=== PATIENT | male | born 1955 | race Caucasian/White ===

== ENCOUNTER → 2017-03-10 | Outpatient (CLI) | payer MEDICAID ==
[2017-03-10 10:18] LABS: ALT 28 U/L (21-72); AST 30 U/L (17-59); Alkaline Phosphatase 56 U/L (38-126); Anion Gap 9 mmol/L; Blood Urea Nitrogen 21 mg/dL (9-20); Calcium 9.2 mg/dL (8.4-10.2); Carbon Dioxide 29 mmol/L (22-30); Chloride 105 mmol/L (98-107); Cholesterol 220 mg/dL (<200); Glucose 97 mg/dL (74-99); HDL Cholesterol 42 mg/dL (40-60); Non-African American GFR(MDRD) >60 (>60 ml/min/1.73 sqM); Potassium 4.4 mmol/L (3.5-5.1); Sodium 143 mmol/L (137-145); Total Bilirubin 0.9 mg/dL (0.2-1.3); Total Protein 7.5 g/dL (6.3-8.2); Triglycerides 115 mg/dL (<150)
[2017-03-10 10:28] LABS: CH 31.5; CHCM 33.5; HCT 43.9 % (39.0-53.0); HDW 2.55; HGB 15.1 gm/dL (13.0-17.5); MCH 32.5 pg (25.0-35.0); MCHC 34.5 g/dL (31.0-37.0); MCV 94.3 fL (80.0-100.0); Mean Platelet Volume 6.9; RBC 4.65 m/uL (4.30-5.90)
== END | disposition home or self-care (01) ==
LOC: LABWHC1 09:43
PROVIDERS: ATTEND Internal Medicine
DX: I10 Essential (primary) hypertension (principal)
CPT/HCPCS: 36415; 80053; 80061; 84443; 85027

== ENCOUNTER → 2018-03-14 | Outpatient (CLI) | payer MEDICAID ==
[2018-03-14 09:19] LABS: HCT 44.6 % (39.0-53.0); HGB 14.8 gm/dL (13.0-17.5); MCH 30.5 pg (25.0-35.0); MCHC 33.1 g/dL (31.0-37.0); MCV 92.1 fL (80.0-100.0); Mean Platelet Volume 6.8; Platelet Count 218 k/uL (150-450); RBC 4.84 m/uL (4.30-5.90); RDW 13.3 % (11.5-15.5); WBC 5.8 k/uL (3.8-10.6)
[2018-03-14 09:28] LABS: Calcium 9.2 mg/dL (8.4-10.2); Potassium 4.8 mmol/L (3.5-5.1); Total Bilirubin 0.7 mg/dL (0.2-1.3); Total Protein 6.9 g/dL (6.3-8.2)
== END | disposition home or self-care (01) ==
LOC: LABWHC1 08:35
PROVIDERS: ATTEND Internal Medicine
DX: I10 Essential (primary) hypertension (principal)
CPT/HCPCS: 36415; 80053; 80061; 85027

== ENCOUNTER → 2018-04-27 | Outpatient (CLI) | payer MEDICAID ==
--- NOTE | 2018-04-28 01:47 | MR ---
EXAMINATION TYPE: MR shoulder RT wo con DATE OF EXAM: 04/27/2018 COMPARISON: None HISTORY: Pain in right shoulder TECHNIQUE: Multiplanar, multisequence imaging of the right shoulder is performed without contrast. FINDINGS: There is retraction of the supraspinatus tendon from the greater tuberosity of the humerus. There is intact biceps tendon and subscapularis tendon. There is shoulder joint effusion with fluid at the gre ater tuberosity and around the biceps tendon. The glenoid hellen appear intact. There is minor spurrin g at the AC joint. There is no significant impingement on the supraspinatus tendon. IMPRESSION: Large rotator cuff tear with retraction of the supraspinatus tendon. Shoulder joint effusion.
== END | disposition home or self-care (01) ==
LOC: RADMRIMAIN 07:11
PROVIDERS: ATTEND Orthopaedic Surgery
DX: M75.101 Unspecified rotator cuff tear or rupture of right shoulder, not specified as traumatic (principal); M25.411 Effusion, right shoulder; M65.811 Other synovitis and tenosynovitis, right shoulder; M75.41 Impingement syndrome of right shoulder

== ENCOUNTER 2018-06-16 06:17 | Day surgery (SDC) | payer MEDICAID ==
[2018-06-13 11:19] VITALS: BMI 29.7
[~2018-06-16 06:17] MED LIST: DEXAMETHASONE SOD PHOSPHATE 10 MG/ML 1 ML VIAL IV ONE; LACTATED RINGERS 1,000 ML IV SCH; MIDAZOLAM 2 MG/2 ML VIAL IV PRN; ONDANSETRON 4 MG/2 ML VIAL IVP ONE; SCOPOLAMINE 1.5MG/72HR PATCH TRANSDERM ONE; ceFAZolin IN SWFI 2 GM/20 ML SYRINGE IVP ONE; fentaNYL (PF) 50 MCG/ML 2 ML AMP IV PRN
[2018-06-16] MEDS ORDERED: MIDAZOLAM 2 MG/2 ML VIAL IV ONE (07:19)
[2018-06-16] MEDS ORDERED: LIDOCAINE 1% 20 ML VIAL (10MG/ML) FOR IV START INTRADERMA ONE (07:26)
[2018-06-16] MEDS ORDERED: LIDOCAINE 2%-EPI 1:100,000 20 ML VIAL ONE (07:46)
[2018-06-16] MEDS ORDERED: ePHEDrine SULFATE/0.9% NACL/PF 50 MG/5 ML SYRINGE IV ONE (07:46)
[2018-06-16] MEDS ORDERED: PROPOFOL 10 MG/ML 20 ML VIAL IV ONE (07:46)
[2018-06-16] MEDS ORDERED: MIDAZOLAM 2 MG/2 ML VIAL ONE (07:46)
[2018-06-16] MEDS ORDERED: LIDOCAINE 1% INJ 10MG/ML (20 ML MDV) ONE (07:46)
[2018-06-16] MEDS ORDERED: ROPIVACAINE 5 MG/ML 30 ML VIAL ONE (07:46)
[2018-06-16] MEDS ORDERED: ceFAZolin 1,000 MG in SODIUM CHLORIDE 0.9% 1,000 ML IRRIGATION ONE (08:07)
[2018-06-16] MEDS ORDERED: LACTATED RINGERS 1,000 ML IV ONE (09:06)
[2018-06-16 09:34] VITALS: TEMP 97.1
[2018-06-16 10:03] VITALS: RESP 18
--- NOTE | 2018-06-16 10:11 | P.ONQ ---
Anesthesiology Proc Note - PNB - Peripheral Nerve Block Performed Right Interscalene Indication: Acute Post-Operative Pain, Requested by physician (Dr Mason) Sedation Type: Sedate with meaningful contact maintained Preparation: Sterile Prep Position: Supine Catheter: None Needle Types: Other (see comment) (Orlin) Needle Size: 50mm (2") Needle Gauge: 21 Technique: Ultrasound (0.5% Ropivacaine 14cc, 2% lidocaine with 1:200,000 epi 14cc) Blood Aspirated: No Pain Paresthesia on Injection Noted: No Resistance on Injection: Normal Events: Uneventful and Well Tolerated
[2018-06-16 11:12] VITALS: BP 139/79; PULSE 69
--- NOTE | 2018-06-23 08:25 | OP ---
OPERATIVE REPORT DATE OF PROCEDURE: 06/16/2018. SURGEON: Arsh Mason DO. PROOF SORTER: MANJIT Nichols PREOPERATIVE DIAGNOSIS: Complete rupture of the right rotator cuff. POSTOPERATIVE DIAGNOSIS: Complete rupture of the right rotator cuff. PROCEDURE PERFORMED: Resection of the distal right clavicle, decompression acromioplasty, and right rotator cuff repair utilizing 2 Arthrex bioabsorbable screw anchors. DESCRIPTION OF PROCEDURE: Patient was taken to the operative suite and placed in supine position. Regional block anesthesia had been performed by the department of anesthesia. The patient was placed on the surgical table and appropriately padded and secured in the beach chair position. A Betadine prep was carried out over the right shoulder and arm in the usual fashion. Sterile drapes were applied in the usual manner. Anterolateral approach incision was developed over the anterior lateral border of the acromion. Sharp dissection through the subcutaneous tissue was performed. The acromioclavicular ligament was dissected and the distal 1 cm of the clavicle was excised. The anterior deltoid was released along the anterior lateral border. Decompression acromioplasty was performed. The acromion undersurface was smoothed with a bone saw and bone rasp. Direct visualization with complete tear of the rotator cuff was noted. With the arm in abduction, the rotator cuff was secured in position with Arthrex 5.5 bioabsorbable anchor. The area was irrigated copiously. The deltoid was approximated back into the acromion with #1 Ethibond suture. The fascia was approximated with #1 Vicryl suture in running fashion. The subcutaneous tissue was approximated with 2-0 Vicryl suture. The skin was approximated with subcuticular 3-0 Vicryl closure. The incision was sealed with Dermabond. A sterile dressing was applied. The patient was placed in abductor pillow and transferred to the recovery room in satisfactory postop condition. GROSS PATHOLOGY: This was a complete rupture of the right rotator cuff, approximately 6 to 8 months old. MMODL / IJN: [id number] / [email or web address]
== END 2018-06-16 11:30 | disposition home or self-care (01) ==
LOC: OR 06:17 → 5ONC 09:19 → OR 11:30
PROVIDERS: ATTEND Orthopaedic Surgery
DX: M75.121 Complete rotator cuff tear or rupture of right shoulder, not specified as traumatic (principal); I10 Essential (primary) hypertension; M75.41 Impingement syndrome of right shoulder; M65.811 Other synovitis and tenosynovitis, right shoulder; E78.00 Pure hypercholesterolemia, unspecified; E66.9 Obesity, unspecified; H40.9 Unspecified glaucoma; Z79.82 Long term (current) use of aspirin; Z79.899 Other long term (current) drug therapy; Z87.01 Personal history of pneumonia (recurrent); Z68.31 Body mass index [BMI] 31.0-31.9, adult
CPT/HCPCS: 23412; 23120; 23130; 64415; C1713; J2250; J1100; J2405; J0690 ×2; J2001; J2795; J2704

== ENCOUNTER 2018-09-25 12:34 | Day surgery (SDC) | payer MEDICAID ==
[2018-09-21 10:54] VITALS: BMI 29.7
[~2018-09-25 12:34] MED LIST changes: +HYDROmorphone 0.5 MG/0.5 ML SYRINGE IVP PRN; +LIDOCAINE 1% 20 ML VIAL (10MG/ML) FOR IV START INTRADERMA PRN; +Pre Op ABX Message 1 EACH MISC MISCELLANE ONE; -ceFAZolin IN SWFI 2 GM/20 ML SYRINGE IVP ONE; -fentaNYL (PF) 50 MCG/ML 2 ML AMP IV PRN
[2018-09-25] MEDS ORDERED: ROPIVACAINE 5 MG/ML 30 ML VIAL MISCELLANE ONE (14:16)
[2018-09-25] MEDS ORDERED: LIDOCAINE 2% INJ 20 MG/ML SQ ONE (14:16)
[2018-09-25 15:00] VITALS: PULSE 69; RESP 18
[2018-09-25 15:19] VITALS: BP 126/78; TEMP 70
--- NOTE | 2018-09-25 16:54 | OP ---
OPERATIVE REPORT DATE OF SURGERY: 09/25/2018. PREOPERATIVE DIAGNOSIS: Ganglion cyst and osteophytic spur DIP joint, left middle finger with nail deformity. FINAL DIAGNOSES: Ganglion cyst and osteophytic spur DIP joint, left middle finger with nail deformity. PROCEDURE PERFORMED: Arthrotomy DIP joint with debridement and excision of ganglion cyst, left middle finger. DESCRIPTION OF PROCEDURE: 63-year-old man was taken operative suite and a straight local anesthetic was injected by myself with combination of Xylocaine and Marcaine both without epinephrine in a digital block manner. His hand was then prepped and draped in the usual manner. Hemostasis was acquired with a [place] drain at the base of the left middle finger. A T-shaped incision was created over the radial corner of the DIP joint. Skin flaps were dissected. An arthrotomy was performed with debridement of the joint using a grand baby rongeur. The extensor tendon was intact at the completion of the procedure. The debridement contents were sent to the lab for analysis. A tunnel was created from the joint to the cyst which exited over the radial aspect of the proximal nail fold. This was incised and drained and evacuated and debrided. The tourniquet was released and hemostasis was satisfactory. The wound was irrigated. The wound was closed with 5-0 nylon suture. Soft bulky dressing was applied. The patient taken to recovery in satisfactory condition. MMODL / IJN: [id number] /
== END 2018-09-25 15:26 | disposition home or self-care (01) ==
LOC: OR 12:34
PROVIDERS: ATTEND Orthopaedic Surgery Hand Surgery
DX: M67.442 Ganglion, left hand (principal); M19.042 Primary osteoarthritis, left hand; I10 Essential (primary) hypertension; H40.9 Unspecified glaucoma; Z79.899 Other long term (current) drug therapy; Z79.82 Long term (current) use of aspirin; Z88.6 Allergy status to analgesic agent
CPT/HCPCS: 26160; 88304; J2001; J1100; J2405; J2795

== ENCOUNTER → 2018-09-28 | Outpatient (CLI) | payer MEDICAID | END | disposition home or self-care (01) | LOC: LABWHC1 10:54 | PROVIDERS: ATTEND Orthopaedic Surgery Hand Surgery | DX: M19.042 Primary osteoarthritis, left hand (principal); M79.642 Pain in left hand; R22.9 Localized swelling, mass and lump, unspecified; Z98.890 Other specified postprocedural states | CPT/HCPCS: 87070; 87077; 87186; 87205 ==

== ENCOUNTER 2018-10-16 08:55 | Emergency (ER) | payer MEDICAID ==
[2018-10-16 09:00] VITALS: TEMP 97.5
[2018-10-16] MEDS ORDERED: SODIUM CHLORIDE 0.9% 1,000 ML IV STA (09:13)
--- NOTE | 2018-10-16 09:18 | ED ---
General Adult HPI - General Chief complaint: Skin/Abscess/Foreign Body Stated complaint: Finger infection Time Seen by Provider: 10/16/18 09:04 Source: patient, RN notes reviewed Mode of arrival: ambulatory Limitations: no limitations - History of Present Illness Initial comments: Patient 63-year-old male presenting to the emergency room today with a chief complaint of infection to the left middle finger. Patient does admit that on September 25 he had a surgery at Dr. Stewart for ganglionic cyst removal. States that 3 days later became infected. He states he's been on antibiotics of Bactrim since. He states he's taking Bactrim 3 times daily. He states he has been following up with orthopedics. Most recently saw 4 days ago in the office. They did discuss about coming in the following day to do a drainage. However, patient states that his insurance is through [facility] and did not want to have to pay for surgery at the office. States he is scheduled to see him this coming week. States he woke up this morning noticed that there was a blister area to the volar aspect that is new. States the swelling has stayed about the same. States pain is roughly the same as it comes and goes. He denies any other complaints or symptoms. Patient denies any recent fever, chills, shortness of breath, chest pain, back pain, abdominal pain, nausea or vomiting, numbness or tingling, headaches or visual changes, or any other complaints. - Related Data Home Medications Medication Instructions Recorded Confirmed Latanoprost Ophth [Xalatan 0.005%] 1 drops LEFT EYE HS 08/09/17 10/16/18 Losartan Potassium [Cozaar] 50 mg PO W/SUPPER 08/09/17 10/16/18 Timolol 0.5% Ophth Soln [Timoptic 1 drop BOTH EYES HS 06/13/18 10/16/18 0.5% Ophth Soln] Sulfamethoxazole/Trimethoprim 1 tab PO BID 10/16/18 10/16/18 [Bactrim DS 800-160 mg] Previous Rx's Medication Instructions Recorded Cephalexin [Keflex] 500 mg PO Q12HR 10 Days cap 10/16/18 Allergies Allergy/AdvReac Type Severity Reaction Status Date / Time spider venom Allergy Rash/Hives Verified 10/16/18 09:48 tramadol Allergy Nausea & Verified 10/16/18 09:48 Vomiting Review of Systems ROS Statement: Those systems with pertinent positive or pertinent negative responses have been documented in the HPI. ROS Other: All systems not noted in ROS Statement are negative. Past Medical History Past Medical History: Eye Disorder, Hypertension Additional Past Medical History / Comment(s): open and closed angle glaucoma. heart murmur, History of Any Multi-Drug Resistant Organisms: None Reported Past Surgical History: Hernia Repair, Orthopedic Surgery Additional Past Surgical History / Comment(s): lt elbow reattached tendon, laser surgery sherry eyes, rt eye surgery(tube)-for bleb, rt eye cataract, rt rotator cuff repair Past Anesthesia/Blood Transfusion Reactions: Postoperative Nausea & Vomiting ( PONV) Additional Past Anesthesia/Blood Transfusion Reaction / Comment(s): "took long time to come out" with elbow surgery Past Psychological History: No Psychological Hx Reported Smoking Status: Never smoker Past Alcohol Use History: None Reported Past Drug Use History: None Reported - Past Family History Brother(s) Family Medical History: Cancer Additional Family Medical History / Comment(s): x2 brothers prostate cancer General Exam - General Exam Comments Initial Comments: General: The patient is awake and alert, in no distress, and does not appear acutely ill. Eye: There is normal conjunctiva bilaterally. No signs of icterus. Ears, nose, mouth and throat: There are moist mucous membranes and no oral lesions. Neck: The neck is supple Musculoskeletal: Patient does have a moderately swollen third digit of the left hand. There is ulcerated area at the DIP aspect posteriorly where cyst was removed. There is mild redness. There is no lymphangitic streaking. Strength 5/5. Sensation intact. Radial pulses equal bilaterally 2+. Neurological: A&O x 3. CN II-XII intact, There are no obvious motor or sensory deficits. Coordination appears grossly intact. Speech is normal. Skin: Skin is warm and dry and no rashes or lesions are noted. Psychiatric: Cooperative, appropriate mood & affect, normal judgment. Limitations: no limitations Course Vital Signs 10/16/18 08:58 Temperature 97.5 F L Pulse Rate 66 Respiratory 20 Rate Blood Pressure 135/75 O2 Sat by Pulse 98 Oximetry Medical Decision Making - Medical Decision Making Patient's labs been reviewed no elevated white count. No fever here in the emergency room. Patient states that the swelling redness has stayed the same over the last 3 weeks. He has been following closely with orthopedics. Patient x-ray show no evidence of osteomyelitis. Results were discussed with patient. Options of admission were also discussed. He states he would like to be discharged if possible. We will add antibiotic Keflex to the regimen of Bactrim that he is currently on. Patient is advised to follow-up with orthopedics the next 2 days. Advised to return here to emergency room if symptoms increase or worsen. He states understanding and is in agreement. - Lab Data Result diagrams: 10/16/18 09:27 10/16/18 09:27 Lab Results 10/16/18 10/16/18 Range/Units 09:27 09:27 WBC 5.7 (3.8-10.6) k/uL RBC 4.85 (4.30-5.90) m/uL Hgb 14.5 (13.0-17.5) gm/dL Hct 44.3 (39.0-53.0) % MCV 91.3 (80.0-100.0) fL MCH 30.0 (25.0-35.0) pg MCHC 32.8 (31.0-37.0) g/dL RDW 13.1 (11.5-15.5) % Plt Count 320 (150-450) k/uL Neutrophils % 56 % Lymphocytes % 30 % Monocytes % 8 % Eosinophils % 4 % Basophils % 1 % Neutrophils # 3.2 (1.3-7.7) k/uL Lymphocytes # 1.7 (1.0-4.8) k/uL Monocytes # 0.4 (0-1.0) k/uL Eosinophils # 0.2 (0-0.7) k/uL Basophils # 0.0 (0-0.2) k/uL Sodium 138 (137-145) mmol/L Potassium 4.6 (3.5-5.1) mmol/L Chloride 104 (98-107) mmol/L Carbon Dioxide 24 (22-30) mmol/L Anion Gap 10 mmol/L BUN 21 H (9-20) mg/dL Creatinine 1.30 H (0.66-1.25) mg/dL Est GFR (CKD-EPI)AfAm 67 (>60 ml/min/1.73 sqM) Est GFR (CKD-EPI)NonAf 58 (>60 ml/min/1.73 sqM) Glucose 96 (74-99) mg/dL Calcium 9.4 (8.4-10.2) mg/dL Total Bilirubin 0.4 (0.2-1.3) mg/dL AST 28 (17-59) U/L ALT 30 (21-72) U/L Alkaline Phosphatase 58 (38-126) U/L Total Protein 7.4 (6.3-8.2) g/dL Albumin 3.9 (3.5-5.0) g/dL Disposition Clinical Impression: Finger infection Disposition: HOME SELF-CARE Condition: Good Instructions: Abscess (ED) Additional Instructions: Please use medication as discussed. Please follow-up with orthopedics in the next 2 days. Please return to emergency room if the symptoms increase or worsen or for any other concerns. Prescriptions: Cephalexin [Keflex] 500 mg PO Q12HR 10 Days cap Is patient prescribed a controlled substance at d/c from ED?: No Referrals: Alvaro Hubbard MD [Primary Care Provider] - 1-2 days Time of Disposition: 10:54
[2018-10-16 09:42] LABS: Basophils % (A) 1 %; Eosinophils # (A) 0.2 k/uL (0-0.7); Eosinophils % (A) 4 %; HCT 44.3 % (39.0-53.0); HGB 14.5 gm/dL (13.0-17.5); Lymphocytes # (A) 1.7 k/uL (1.0-4.8); Lymphocytes % (A) 30 %; MCHC 32.8 g/dL (31.0-37.0); MCV 91.3 fL (80.0-100.0); Mean Platelet Volume 6.2; Monocytes # (A) 0.4 k/uL (0-1.0); Monocytes % (A) 8 %; Neutrophils # (A) 3.2 k/uL (1.3-7.7); Neutrophils % (A) 56 %; Platelet Count 320 k/uL (150-450); RBC 4.85 m/uL (4.30-5.90); RDW 13.1 % (11.5-15.5); WBC 5.7 k/uL (3.8-10.6)
[2018-10-16 09:50] LABS: Albumin 3.9 g/dL (3.5-5.0); Calcium 9.4 mg/dL (8.4-10.2); Potassium 4.6 mmol/L (3.5-5.1); Total Bilirubin 0.4 mg/dL (0.2-1.3); Total Protein 7.4 g/dL (6.3-8.2)
--- NOTE | 2018-10-16 10:03 | XR ---
EXAMINATION TYPE: XR hand complete LT DATE OF EXAM: 10/16/2018 CLINICAL HISTORY: Surgery of the left distal third digit on 09/25/2018 with subsequent swelling and c oncern for infection. TECHNIQUE: Frontal, lateral and oblique images of the left hand are obtained. COMPARISON: None. FINDINGS: There is no acute fracture/dislocation evident in the left hand. There is focal subcutaneo us soft tissue swelling of the third digit at the distal interphalangeal joint with more generalized soft tissue swelling of the third digit to a lesser degree. Punctate foreign body is seen of the radi al and volar aspect of the third digit near the distal aspect of the proximal phalanx. Degenerative c hanges are most pronounced at the distal interphalangeal joint of the third digit with flexion deform ity but overall mild in degree and also seen at the remaining distal interphalangeal joints and first carpometacarpal joint. No suspicious osseous erosion is seen to suggest osteomyelitis. IMPRESSION: Soft tissues swelling of the third digit most pronounced at the distal interphalangeal joint with fle xion deformity at the distal interphalangeal joint and degenerative change. No radiographic sequela o f chronic osteomyelitis. Punctate radiopaque foreign body is seen at the radial and volar aspect of t he proximal third phalanx.
[2018-10-16 11:03] VITALS: BP 127/79; PULSE 55; RESP 16
== END 2018-10-16 11:16 | disposition home or self-care (01) ==
LOC: EC 08:55
DX: L98.499 Non-pressure chronic ulcer of skin of other sites with unspecified severity (principal); I10 Essential (primary) hypertension; H40.20X0 Unspecified primary angle-closure glaucoma, stage unspecified; H40.10X0 Unspecified open-angle glaucoma, stage unspecified; Z88.5 Allergy status to narcotic agent; Z91.048 Other nonmedicinal substance allergy status; Z79.899 Other long term (current) drug therapy
CPT/HCPCS: 36415; 80053; 83605; 85025; 87040; 96360; 99284

== ENCOUNTER → 2018-10-25 | Day surgery (SDC) | payer MEDICAID ==
[2018-10-24 10:46] VITALS: BMI 29.7
[~2018-10-25] MED LIST changes: -DEXAMETHASONE SOD PHOSPHATE 10 MG/ML 1 ML VIAL IV ONE; -HYDROmorphone 0.5 MG/0.5 ML SYRINGE IVP PRN; -LACTATED RINGERS 1,000 ML IV SCH; -LIDOCAINE 1% 20 ML VIAL (10MG/ML) FOR IV START INTRADERMA PRN; +LIDOCAINE 1% INJ 10MG/ML (20 ML MDV) ONE; +LIDOCAINE 1% INJ 10MG/ML (20 ML MDV) SQ ONE; -MIDAZOLAM 2 MG/2 ML VIAL IV PRN; -ONDANSETRON 4 MG/2 ML VIAL IVP ONE; -Pre Op ABX Message 1 EACH MISC MISCELLANE ONE; -SCOPOLAMINE 1.5MG/72HR PATCH TRANSDERM ONE
[2018-10-25 11:20] VITALS: TEMP 98
[2018-10-25 12:04] VITALS: BP 120/70; PULSE 56; RESP 16
--- NOTE | 2018-10-25 12:15 | IR ---
PICC LINE PLACEMENT: HISTORY: Infection requiring long-term antibiotic therapy PROCEDURE: Ultrasound and fluoroscopic guidance of PICC line placement. COMPLICATIONS: None ANESTHESIA: 1. 1% Lidocaine locally. FINDINGS/TECHNIQUE: The procedure was explained to the patient. The risks, complications, benefits and alternatives were discussed and any questions were answered. Informed consent was obtained. The patient was placed supine on the fluoroscopic table and prepped and draped in the usual sterile [facility] ion. Utilizing a 21 gauge needle and sonographic and fluoroscopic guidance, access in left basilic vein was achieved and there is placement of a 0.018 guidewire. The vein is patent. A 4-F sheath was placed over the guidewire. The guidewire and dilator were removed and a 4-F. PICC line was placed t hrough the sheath with the tip at the level of the SVC. The sheath was removed, the catheter was flu shed and sutured into position. The patient was stable throughout the procedure and remained stable upon discharge from the Department of Radiology. The vein puncture was patent under ultrasound. A manrique scale image was obtained to document patency of the vein punctured. All elements of the maximal barrier technique were utilized. FLUOROSCOPY TIME: 0.1 minute and one image submitted IMPRESSION: Successful PICC line placement under ultrasound and fluoroscopic guidance.
[2018-10-25 12:33] LABS: Potassium 4.4 mmol/L (3.5-5.1)
[2018-10-25 12:36] LABS: HCT 42.2 % (39.0-53.0); HGB 14.2 gm/dL (13.0-17.5); MCH 30.7 pg (25.0-35.0); MCHC 33.6 g/dL (31.0-37.0); MCV 91.5 fL (80.0-100.0); Platelet Count 177 k/uL (150-450); RBC 4.62 m/uL (4.30-5.90); RDW 13.3 % (11.5-15.5)
[2018-10-25 12:52] LABS: Band Neutrophils % 1 %; Eosinophils # (M) 0.25 k/uL (0-0.7); Lymphocytes # (M) 1.85 k/uL (1.0-4.8); Monocytes # (M) 0.75 k/uL (0-1.0); Neutrophils % (M) 42 %; Nucleated Red Blood Cells 0 /100 WBC (0-0); Poikilocytosis (M) Present; Total Cells Counted 100
== END ==
LOC: CATHCVL 10:54
PROVIDERS: ATTEND Radiology Diagnostic Radiology
DX: M65.842 Other synovitis and tenosynovitis, left hand (principal); E66.9 Obesity, unspecified; Z68.29 Body mass index [BMI] 29.0-29.9, adult; E78.00 Pure hypercholesterolemia, unspecified; I10 Essential (primary) hypertension; Z79.899 Other long term (current) drug therapy; Z88.5 Allergy status to narcotic agent
CPT/HCPCS: 36573; 80051; 82565; 84520; 85025; C1751; C1769; J2001

== ENCOUNTER → 2018-11-27 | Outpatient (CLI) | payer MEDICAID ==
--- NOTE | 2018-11-27 22:55 | MR ---
EXAMINATION TYPE: MR hand LT wo/w con DATE OF EXAM: 11/27/2018 COMPARISON: Left hand x-ray October 16, 2018. HISTORY: Abrasion of left middle finger w/infection after surgery to remove a cyst on September 27. Hi story of working around metal shavings. CONTRAST: Standard multiplanar, multisequence MRI departmental protocol utilizing 10 mL intravenous Gadavist ga dolinium contrast. FINDINGS: Exam noted suboptimal as there is an homogeneity of the fat saturation pulse. On the radial aspect at level of the distal diaphysis of the third proximal phalanx there is suscepti bility artifact from known metallic soft tissue foreign body seen on x-ray. There is moderate asymmet preethi enlargement of the left third digit with soft tissue thickening noted. There is additional suscep tibility artifact less prominent but along palmar surface at level of the distal third middle phalanx seen best sagittal image 12. No corresponding metallic foreign body is clearly seen radiograph. Enha ncing soft tissue is felt present at this level consistent with acute cellulitis.. Flexor tendon is i ntact on the sagittal images. No definitive osseous edema or enhancing osseous enhancement is present . Remainder of visualized hand shows mild to moderate narrowing and mild spurring throughout the remain moose of the phalanges. No suspicious edema osseous edema or enhancement is seen. IMPRESSION: As above, moderate enlargement of the third finger most prominent along the plantar surface with enha ncing subcutaneous fat suspicious for acute cellulitis. Second soft tissue foreign body suspected wit h susceptibility artifact.
== END ==
LOC: RADMRIMAIN 07:08
PROVIDERS: ATTEND Internal Medicine Infectious Disease
DX: M79.89 Other specified soft tissue disorders (principal)
CPT/HCPCS: 73220; A9585

== ENCOUNTER → 2018-11-30 | Day surgery (SDC) | payer MEDICAID ==
[2018-11-29 14:26] VITALS: BMI 29.7
[~2018-11-30] MED LIST changes: +DEXAMETHASONE SOD PHOSPHATE 10 MG/ML 1 ML VIAL IV ONE; +LACTATED RINGERS 1,000 ML IV SCH; +LIDOCAINE 1% 20 ML VIAL (10MG/ML) FOR IV START INTRADERMA PRN; -LIDOCAINE 1% INJ 10MG/ML (20 ML MDV) ONE; -LIDOCAINE 1% INJ 10MG/ML (20 ML MDV) SQ ONE; +LIDOCAINE 2% INJ 20 MG/ML SQ ONE; +MIDAZOLAM (PF) 2 MG/2 ML VIAL IV PRN; +ONDANSETRON 4 MG/2 ML VIAL IVP ONE; +Pre Op ABX Message 1 EACH MISC MISCELLANE ONE; +ROPIVACAINE 5 MG/ML 30 ML VIAL MISCELLANE ONE; +fentaNYL (PF) 50 MCG/ML 2 ML AMP IV PRN
[2018-11-30 13:42] VITALS: RESP 16; TEMP 98.7
[2018-11-30 16:07] VITALS: BP 125/78; PULSE 57
--- NOTE | 2018-12-01 18:57 | OP ---
OPERATIVE REPORT DATE OF SURGERY: 11/30/2018. PREOPERATIVE DIAGNOSIS: Infected left middle finger. FINAL DIAGNOSIS: Infected left middle finger. PROCEDURE PERFORMED: 1. Arthrotomy DIP joint with culture and deep lavage. 2. Flexor tendon sheath exploration with culture and lavage. INDICATIONS: 63-year-old man has had a persistent infection of his left middle finger DIP joint, treated with IV antibiotics. It has been recovering slowly and has recently developed a resurgence of redness and swelling. Physical exam demonstrated a swelling in the joint and also beginning in the flexor tendon sheath. The distal aspect on the volar side. Therefore, both dorsal and volar approaches are being performed. GROSS PATHOLOGY: Intraoperatively there were minimal findings of infection. Examination today actually in the preop area demonstrates significantly less redness than there was yesterday when seen in the office and the procedure was scheduled. Intraoperatively, there was minimal signs of pus near the joint or the flexor tendon sheath. There was synovial fluid in the flexor tendon sheath. Both were cultured separately and exposed with separate instruments. PROCEDURE: 63-year-old man was taken to the operative suite where a straight local anesthetic was administered. No other sedation was given at his request. His hand was prepped and draped in usual manner. A proximal tourniquet on the finger with a Shannan drain was used for hemostasis. A T-shaped incision was made over the previous infection site in the DIP joint. Dissection was taken down to the corner of the joint. A partial capsulectomy was performed for exposure and a culture was taken. As stated above, there really were not any visual signs of infection per se. Attention was then turned to the flexor tendon sheath on the volar side. Longitudinal V-shaped incision was made over the DIP joint. Blunt dissection was taken down to the flexor tendon sheath, avoiding the neurovascular bundles on either side. Procedure was done under 4.5 loupe magnification. When the flexor tendon sheath was opened, there was synovial fluid, but no signs of pus. A separate culture was taken. Note that separate instruments were used for both exposures to avoid any cross contamination. 3000 mL of and of fluid were then pulse lavaged in both wounds. The wounds were then packed with sterile gauze and a bulky soft dressing was applied. No wound closure was performed for drainage purposes. The patient was then taken to the recovery room in satisfactory condition. MMODL / IJN: [id number] /
== END ==
LOC: OR 13:08
PROVIDERS: ATTEND Orthopaedic Surgery Hand Surgery
DX: L08.9 Local infection of the skin and subcutaneous tissue, unspecified (principal); I10 Essential (primary) hypertension; H40.9 Unspecified glaucoma; Z79.2 Long term (current) use of antibiotics; Z79.899 Other long term (current) drug therapy; Z88.5 Allergy status to narcotic agent
CPT/HCPCS: 87070; 87205; 87075; 26080; J2001; J1642; J2795

== ENCOUNTER → 2019-07-06 | Outpatient (CLI) | payer MEDICAID ==
[2019-07-06 08:45] LABS: MCV 91.2 fL (80.0-100.0); Mean Platelet Volume 6.8; Platelet Count 228 k/uL (150-450); RBC 4.83 m/uL (4.30-5.90); RDW 13.9 % (11.5-15.5); WBC 6.9 k/uL (3.8-10.6)
[2019-07-06 17:07] LABS: African American GFR (CKD) 73.6 (60.0-200.0); Albumin 4.2 g/dL (3.80-4.90); Albumin/Globulin Ratio 1.83 (1.60-3.17); Anion Gap 8.7 mmol/L (4.00-12.00); BUN/Creat Ratio 19.17 Ratio (12.00-20.00); Calcium 9.4 mg/dL (8.7-10.3); Carbon Dioxide 25.3 mmol/L (21.6-31.8); Chol/HDL Ratio 5.67; Globulin 2.3 g/dL (1.6-3.3); LDL Cholesterol,Calculated 166.8 mg/dL (0.0-131.0); Potassium 4.3 mmol/L (3.5-5.5); Total Bilirubin 0.7 mg/dL (0.2-1.2); Total Protein 6.5 g/dL (6.2-8.2); VLDL Calculation 34.2 mg/dL (5.00-40.00)
== END | disposition home or self-care (01) ==
LOC: LABWHC1 07:59
PROVIDERS: ATTEND Internal Medicine
DX: I10 Essential (primary) hypertension (principal); E78.00 Pure hypercholesterolemia, unspecified
CPT/HCPCS: 36415; 80053; 80061; 85027

== ENCOUNTER 2021-06-21 11:45 | Emergency (ER) | payer MEDICARE ==
[2021-06-21 11:55] VITALS: TEMP 97.9
[2021-06-21] MEDS ORDERED: KETOROLAC 15 MG/ML 1 ML VIAL IVP STA (12:19)
[2021-06-21] MEDS ORDERED: SODIUM CHLORIDE 0.9% 1,000 ML IV STA (12:19)
--- NOTE | 2021-06-21 12:37 | ED ---
Abdominal Pain HPI - General Chief Complaint: Abdominal Pain Stated Complaint: abd pain Time Seen by Provider: 06/21/21 12:04 Source: patient Mode of arrival: ambulatory Limitations: no limitations - History of Present Illness Initial Comments: Patient is a 65-year-old male, with history of hypertension, presenting to emergency Department with complaints of left flank pain, nausea and vomiting started yesterday. He states he noticed a little bit of flank pain yesterday, did come around to the left side and then seemed to go away last night. He sta judith he woke up feeling better little bit sore however a few hours ago the pain increased, he had nausea and vomiting and decided to come in to be seen. He states currently the pain as a 5/10 mostly in the left side, mildly left lower quadrant. He admits to history of hernia repair, no other abdominal surgeries. He denies any fevers or chills. He states he has had kidney stones in the past and this does feel similar to that. He denies any hematuria or dysuria. He recently followed up with his urologist concerning a large stone in one of his kidneys, they had plans to plastic however he needed clearance with cardiology. His urologist is out of [place]. He denies any chest pain or short of breath, no cough. He has no further complaints at this time. His vital signs are stable upon arrival. - Related Data Home Medications Medication Instructions Recorded Confirmed Latanoprost Ophth [Xalatan 0.005%] 1 drops LEFT EYE HS 08/09/17 11/30/18 Losartan Potassium [Cozaar] 50 mg PO W/SUPPER 08/09/17 11/30/18 Timolol 0.5% Ophth Soln [Timoptic 1 drop BOTH EYES HS 06/13/18 11/30/18 0.5% Ophth Soln] cefTRIAXone [Rocephin] 2 gm IVPB Q24H 11/29/18 11/30/18 Previous Rx's Medication Instructions Recorded Ketorolac [Toradol] 10 mg PO Q8HR #10 tab 06/21/21 Ondansetron Odt [Zofran Odt] 4 mg PO Q8HR PRN #10 tab 06/21/21 Tamsulosin [Flomax] 0.4 mg PO DAILY #7 cap 06/21/21 Allergies Allergy/AdvReac Type Severity Reaction Status Date / Time spider venom Allergy Rash/Hives Verified 06/21/21 13:59 tramadol Allergy Nausea & Verified 06/21/21 13:59 Vomiting Review of Systems ROS Statement: Those systems with pertinent positive or pertinent negative responses have been documented in the HPI. ROS Other: All systems not noted in ROS Statement are negative. Past Medical History Past Medical History: Eye Disorder, Hypertension Additional Past Medical History / Comment(s): open and closed angle glaucoma. heart murmur, currently receiving IV antibiotics for infection left middle finger History of Any Multi-Drug Resistant Organisms: None Reported Past Surgical History: Hernia Repair, Orthopedic Surgery Additional Past Surgical History / Comment(s): lt elbow reattached tendon, laser surgery sherry eyes, rt eye surgery(tube)-for bleb, rt eye cataract, rt rotator cuff repair, ganglion cyst & spur removed left middle finger 09-25-18, PICC line 2018 Past Anesthesia/Blood Transfusion Reactions: Postoperative Nausea & Vomiting (PONV) Additional Past Anesthesia/Blood Transfusion Reaction / Comment(s): "took long time to come out" with elbow surgery Past Psychological History: No Psychological Hx Reported Smoking Status: Never smoker Past Alcohol Use History: None Reported Past Drug Use History: None Reported - Past Family History Brother(s) Family Medical History: Cancer Additional Family Medical History / Comment(s): x2 brothers prostate cancer General Exam - General Exam Comments Initial Comments: GENERAL: Patient is well-developed and well-nourished. Patient is nontoxic and in no acute distress. HEAD: Atraumatic, normocephalic. EYES: Pupils equal round and reactive to light, extraocular movements intact, sclera anicteric, conjunctiva are normal. Eyelids were unremarkable. ENT: TMs normal, nares patent, oropharynx clear without exudates. Moist mucous membranes. NECK: Normal range of motion, supple without lymphadenopathy or JVD. LUNGS: Unlabored respirations. Breath sounds clear to auscultation bilaterally and equal. No wheezes rales or rhonchi. HEART: Regular rate and rhythm without murmurs, rubs or gallops. ABDOMEN: Soft, left-sided tenderness with palpation, mildly left lower quadrant as well, normoactive bowel sounds. No guarding, no rebound. No masses appreciated. : Deferred MUSCULOSKELETAL: Normal extremities with adequate strength and normal range of motion, no pitting or edema. No clubbing or cyanosis. NEUROLOGICAL: Patient is alert and oriented x 3. SKIN: Warm, Dry, normal turgor, no rashes or lesions noted. Limitations: no limitations Course Vital Signs 06/21/21 06/21/21 11:53 13:36 Temperature 97.9 F Pulse Rate 55 L 54 L Respiratory 16 18 Rate Blood Pressure 132/69 118/65 O2 Sat by Pulse 97 95 Oximetry Medical Decision Making - Medical Decision Making Patient is a 65-year-old male history of hypertension, presenting with left-sided flank and left lower quadrant pain that started yesterday as well as some nausea and vomiting. No fevers. His vitals are stable here today. He does have history of kidney stones and this does feel similar. Vital signs are stable upon arrival. Labs show a normal white count, creatinine is slightly bumped at 1.45 with BUN at 29. Urine shows evidence large amount of blood, no evidence of infection. Computed tomography scan of the abdomen shows left hydronephrosis secondary to left mid ureter 5 mm obstructing calculus. Patient received 1 L fluids and Toradol, reports improvement in symptoms. He states he is ready to go home. Pt is already planning to see his urologist over the next few days. I will send patient home with flomax, Toradol and Zofran to use as needed for symptoms. He is in agreement with this plan and care. Strict return parameters were discussed with him and he verbalized understanding. Case discussed with Dr. Banegas. - Lab Data Result diagrams: 06/21/21 12:27 06/21/21 12:27 Lab Results 06/21/21 06/21/21 06/21/21 Range/Units 12:27 12:27 12:27 WBC 10.3 (3.8-10.6) k/uL RBC 4.68 (4.30-5.90) m/uL Hgb 15.0 (13.0-17.5) gm/dL Hct 43.5 (39.0-53.0) % MCV 93.0 (80.0-100.0) fL MCH 32.1 (25.0-35.0) pg MCHC 34.5 (31.0-37.0) g/dL RDW 13.0 (11.5-15.5) % Plt Count 275 (150-450) k/uL MPV 8.0 Neutrophils % 72 % Lymphocytes % 17 % Monocytes % 7 % Eosinophils % 2 % Basophils % 0 % Neutrophils # 7.4 (1.3-7.7) k/uL Lymphocytes # 1.8 (1.0-4.8) k/uL Monocytes # 0.7 (0-1.0) k/uL Eosinophils # 0.2 (0-0.7) k/uL Basophils # 0.0 (0-0.2) k/uL Sodium 138 (137-145) mmol/L Potassium 5.3 H (3.5-5.1) mmol/L Chloride 105 (98-107) mmol/L Carbon Dioxide 24 (22-30) mmol/L Anion Gap 9 mmol/L BUN 29 H (9-20) mg/dL Creatinine 1.45 H (0.66-1.25) mg/dL Est GFR (CKD-EPI)AfAm 58 (>60 ml/min/1.73 sqM) Est GFR (CKD-EPI)NonAf 50 (>60 ml/min/1.73 sqM) Glucose 113 H (74-99) mg/dL Plasma Lactic Acid Baltazar (0.7-2.0) mmol/L Calcium 9.6 (8.4-10.2) mg/dL Total Bilirubin 1.0 (0.2-1.3) mg/dL AST 56 (17-59) U/L ALT 30 (4-49) U/L Alkaline Phosphatase 51 (38-126) U/L Total Protein 7.8 (6.3-8.2) g/dL Albumin 4.5 (3.5-5.0) g/dL Urine Color Yellow Urine Appearance Clear (Clear) Urine pH 5.5 (5.0-8.0) Ur Specific [place] 1.024 (1.001-1.035) Urine Protein Trace H (Negative) Urine Glucose (UA) Negative (Negative) Urine Ketones Negative (Negative) Urine Blood Large H (Negative) Urine Nitrite Negative (Negative) Urine Bilirubin Negative (Negative) Urine Urobilinogen <2.0 (<2.0) mg/dL Ur Leukocyte Esterase Negative (Negative) Urine RBC 77 H (0-5) /hpf Urine WBC 2 (0-5) /hpf Urine Mucus Rare H (None) /hpf 09/05/21 Range/Units 12:27 WBC (3.8-10.6) k/uL RBC (4.30-5.90) m/uL Hgb (13.0-17.5) gm/dL Hct (39.0-53.0) % MCV (80.0-100.0) fL MCH (25.0-35.0) pg MCHC (31.0-37.0) g/dL RDW (11.5-15.5) % Plt Count (150-450) k/uL MPV Neutrophils % % Lymphocytes % % Monocytes % % Eosinophils % % Basophils % % Neutrophils # (1.3-7.7) k/uL Lymphocytes # (1.0-4.8) k/uL Monocytes # (0-1.0) k/uL Eosinophils # (0-0.7) k/uL Basophils # (0-0.2) k/uL Sodium (137-145) mmol/L Potassium (3.5-5.1) mmol/L Chloride (98-107) mmol/L Carbon Dioxide (22-30) mmol/L Anion Gap mmol/L BUN (9-20) mg/dL Creatinine (0.66-1.25) mg/dL Est GFR (CKD-EPI)AfAm (>60 ml/min/1.73 sqM) Est GFR (CKD-EPI)NonAf (>60 ml/min/1.73 sqM) Glucose (74-99) mg/dL Plasma Lactic Acid Baltazar 1.3 (0.7-2.0) mmol/L Calcium (8.4-10.2) mg/dL Total Bilirubin (0.2-1.3) mg/dL AST (17-59) U/L ALT (4-49) U/L Alkaline Phosphatase (38-126) U/L Total Protein (6.3-8.2) g/dL Albumin (3.5-5.0) g/dL Urine Color Urine Appearance (Clear) Urine pH (5.0-8.0) Ur Specific [place] (1.001-1.035) Urine Protein (Negative) Urine Glucose (UA) (Negative) Urine Ketones (Negative) Urine Blood (Negative) Urine Nitrite (Negative) Urine Bilirubin (Negative) Urine Urobilinogen (<2.0) mg/dL Ur Leukocyte Esterase (Negative) Urine RBC (0-5) /hpf Urine WBC (0-5) /hpf Urine Mucus (None) /hpf Disposition Clinical Impression: Hydronephrosis, left, Left ureteral calculus Disposition: HOME SELF-CARE Condition: Stable Instructions (If sedation given, give patient instructions): Kidney Stones (ED) Additional Instructions: Please return to the Emergency Department if symptoms worsen or any other concerns. Increase your fluid intake. Take Flomax, Toradol, Zofran for her symptoms. Please follow-up with your urologist as discussed. Prescriptions: Tamsulosin [Flomax] 0.4 mg PO DAILY #7 cap Ketorolac [Toradol] 10 mg PO Q8HR #10 tab Ondansetron Odt [Zofran Odt] 4 mg PO Q8HR PRN #10 tab PRN Reason: Nausea Is patient prescribed a controlled substance at d/c from ED?: No Referrals: Nonstaff,Physician [Primary Care Provider] - 1-2 days Time of Disposition: 14:04
[2021-06-21 12:40] LABS: Basophils % (A) 0 %; Eosinophils # (A) 0.2 k/uL (0-0.7); Eosinophils % (A) 2 %; HCT 43.5 % (39.0-53.0); Lymphocytes # (A) 1.8 k/uL (1.0-4.8); Lymphocytes % (A) 17 %; MCH 32.1 pg (25.0-35.0); MCHC 34.5 g/dL (31.0-37.0); Monocytes # (A) 0.7 k/uL (0-1.0); Monocytes % (A) 7 %; Neutrophils # (A) 7.4 k/uL (1.3-7.7); Neutrophils % (A) 72 %; Platelet Count 275 k/uL (150-450); RBC 4.68 m/uL (4.30-5.90); WBC 10.3 k/uL (3.8-10.6)
[2021-06-21 12:50] LABS: Albumin 4.5 g/dL (3.5-5.0); Calcium 9.6 mg/dL (8.4-10.2); Total Protein 7.8 g/dL (6.3-8.2)
[2021-06-21 12:54] LABS: Potassium 5.3 mmol/L (3.5-5.1)
[2021-06-21 13:07] LABS: Appearance,Urine Clear (Clear); Bilirubin,Urine Negative (Negative); Blood,Urine Large (Negative); Color,Urine Yellow; Glucose,Urine (UA) Negative (Negative); Ketones,Urine Negative (Negative); Leukocyte Esterase,Urine Negative (Negative); Mucus,Urine Rare /hpf; Nitrite,Urine Negative (Negative); PH, Urine 5.5 (5.0-8.0); Protein,Urine Trace (Negative); RBC,Urine 77 /hpf (0-5); Specific Gravity,Urine 1.024 (1.001-1.035); Urobilinogen,Urine <2.0 mg/dL (<2.0); WBC,Urine 2 /hpf (0-5)
[2021-06-21 13:39] VITALS: BP 118/65; PULSE 54; RESP 18
--- NOTE | 2021-06-21 13:54 | CT ---
EXAMINATION TYPE: CT abdomen pelvis w con DATE OF EXAM: 06/21/2021 COMPARISON: 05/06/2016 HISTORY: LLQ pain with vomiting. CT DLP: 1306.2 mGycm, Automated Exposure Control for Dose Reduction was Utilized. CONTRAST: CT scan of the abdomen and pelvis is performed wwith IV Contrast, patient injected with 80 mL of Isov ue 300. FINDINGS: LUNG BASES: Minimal atelectatic changes. INCLUDED CARDIAC STRUCTURES: Valvular calcifications noted. Low-attenuation cardiac chambers suggests anemia. LIVER: Stable subcentimeter low attenuating lesion left hepatic lobe too small to visualize. GALLBLADDER : No significant abnormality is appreciated. BILIARY TREE: No abnormal biliary tree dilation. PANCREAS: No significant abnormality is seen. SPLEEN: No significant abnormality is seen. ADRENALS: No significant abnormality is seen. KIDNEYS AND URETERS: There is a left mid ureter 5 mm calculus causing mild left hydronephrosis. There is left perirenal stranding. There is a 4 mm calculus in the right renal collecting system without h ydronephrosis. URINARY BLADDER: Partially distended. PROSTATE: Enlarged. ESOPHAGUS: No significant abnormality is seen. STOMACH: No significant abnormality is seen. SMALL BOWEL: No significant abnormality is seen. LARGE BOWEL: Pancolonic diverticulosis. No evidence for complicated diverticulitis. No bowel obstruct ion. APPENDIX: No significant abnormality is seen. HERNIAS: Left greater than right fat-containing inguinal hernia. PERITONEUM/MESENTRY: No pneumoperitoneum or ascites. LYMPH NODES: No enlarged retroperitoneal or pelvic lymph nodes are appreciated. MAJOR VASCULAR STRUCTURES: Nonaneurysmal aorta. Unremarkable inferior vena cava. OSSEOUS STRUCTURES: Mild degenerative changes are seen in the thoracic and lumbar spine. IMPRESSION: LEFT HYDRONEPHROSIS SECONDARY TO LEFT MID URETER 5 MM OBSTRUCTING CALCULUS. SEVERAL INCIDENTAL FINDINGS, SEE BODY OF REPORT.
== END 2021-06-21 14:55 | disposition home or self-care (01) ==
LOC: EC 11:45
DX: N13.2 Hydronephrosis with renal and ureteral calculous obstruction (principal); I10 Essential (primary) hypertension; Z88.5 Allergy status to narcotic agent; Z91.038 Other insect allergy status; Z79.899 Other long term (current) drug therapy
CPT/HCPCS: 36415; 80053; 83605; 85025; 81001; 74177; 99284; 96374; 96361; J1885; Q9967

== ENCOUNTER → 2022-11-16 | Outpatient (CLI) | payer MEDICARE ==
--- NOTE | 2022-11-16 15:38 | CT ---
EXAMINATION TYPE: CT sinus wo con CT DLP: 416 mGycm, Automated exposure control for dose reduction was used. DATE OF EXAM: 11/16/2022 3:05 PM COMPARISON: None. CLINICAL INDICATION:Male, 67 years old with history of J32.9 Chronic sinusitis; PHH, Chronic sinusiti s CONTRAST: None. TECHNIQUE: Multiple thin axial images were obtained through the paranasal sinuses without the use of IV contrast. Additional coronal and sagittal reformatted images were submitted for evaluation. FINDINGS: Frontal sinuses: Normally developed and aerated. Frontal Recess: Clear Maxillary Sinuses: Minimal mucosal thickening of the bilateral maxillary sinuses. Maxillary Infundibula([facility]): The right ostiomeatal unit is clear. There is minimal narrowing of the le ft ostiomeatal unit secondary to a Sheryl cell. Ethmoid sinuses: Normally developed and aerated. Ethmoidal notch: Supraorbital pneumatization is iden tified. Sphenoid sinuses: Normally developed and aerated. There is sellar sphenoid sinus pneumatization witho ut evidence of dehiscence. No dehiscence of carotid canal. No evidence of optic nerve dehiscence wit hin the sphenoid sinus. No evidence of Onodi cells. Sphenoethmoidal recesses: Clear. Nasal septum: Within normal limits.. Nasal Turbinates: Within normal limits. Mastoid air cells & middle ears: The air cells are clear. The middle ears are grossly unremarkable. Modified Soft tissues & Brain: Partially seen without gross abnormality. Globes are intact. Other: Cribriform plate demonstrates symmetric Keros classification type 3 cribriform plate. No evidence of bony dehiscence of skull base. Lamina papyracea is intact without evidence of remote orbital fracture or orbital prolapse into the e thmoid sinus. Right ocular lens is surgically absent. IMPRESSION: 1. Minimal bilateral maxillary mucosal sinus disease. 2. The ostiomeatal units are clear however there is some minimal narrowing on the left secondary to a Sheryl cell.
== END | disposition home or self-care (01) ==
LOC: RADCTMAIN 14:33
PROVIDERS: ATTEND Otolaryngology
DX: J32.0 Chronic maxillary sinusitis (principal)
CPT/HCPCS: 70486